=== PATIENT | male | born 1985 | race Caucasian/White ===

== ENCOUNTER 2023-07-10 15:23 | Emergency (ER) | payer OTHER, SELFPAY ==
[2023-07-10 15:26] VITALS: BP 158/105
--- NOTE | 2023-07-10 15:59 | ED.GENMED ---
History of Present Illness
General
Chief Complaint: Musculo-Skeletal Complaint
Time Seen by Provider: 07/10/23 15:41
Travel History
Have you had any contact with someone who has COVID-19?: No
Do you have any symptoms of coronavirus? Fever > 100 degrees, chills, cough, shortness of breath, sore throat, loss of taste or smell, muscle aches, or headache?: No
History of Present Illness
History of Present Illness:
HPI: Patient presents due to right great toe pain. 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 He feels improved today but came in here at the recommendation of his colleagues. He denies any other issues or concerns.
EXAM:
GENERAL: Well appearing in no distress
PSYCHIATRIC: Appropriate mental status, normal insight and judgement
EXTREMITIES: There is tenderness at the right great toe diffusely, there is evidence for contusion just proximal to the nail with no evidence of subungual hematoma, there is only slightly decreased active range of motion at the affected toe
SKIN: As above
TIME OF INITIAL ENCOUNTER: 3:50 PM
NUMBER AND COMPLEXITY OF PROBLEMS ADDRESSED AT THE ENCOUNTER
� Chronic conditions affecting care: Patient is otherwise healthy, no history of diabetes and no history of high blood pressure
� Acute Exacerbation and/or Progression of Chronic Illness: This is an acute problem
� Differential Diagnosis includes: Toe fracture, Toe contusion, subungual hematoma
AMOUNT AND/OR COMPLEXITY OF DATA TO BE REVIEWED AND ANALYZED
� I performed an independent evaluation of and my interpretation is:
EKG:
CT:
X-rays: I personally reviewed x-rays and favor more of a contusion however radiology does note a linear loose to the lateral aspect of the base of the distal phalanx
Laboratory Studies:
Other:
� Review of other/old records: No old records available for review
� Clinical information was obtained by an independent historian: None needed
� Prescriptions/Medications Considered but not given:
� Further testing considered but not performed:
RISK OF COMPLICATIONS AND/OR MORBIDITY OR MORTALITY OF PATIENT MANAGEMENT
� Social determinants of health affecting care: Works at [employer] as a surgeon, lives at home
� Discussion with other providers:
� Escalation of care including admission/observation vs risk of discharge considered: I informed patient of the elevated blood pressure and need for PMD follow-up. He currently appears very comfortable. He declines a boot. I
have given the contact information for orthopedics if needed.
Phy Exam
Physical Exam
Physical Exam:
See HPI
Course
Orders/Labs/Results
Orders:
Orders
07/10/23 15:29
Toes 2 Views, Right [CR Toe(s) Min 2 Vw Right] Urgent
Comment:
Reason For Exam: pain, injury
Vital Signs
Initial and Last Documented VS:
Initial Vital Signs
Temp Pulse Resp BP Pulse Ox
98.2 F 60 18 158/105 99
07/10/23 15:26 07/10/23 15:26 07/10/23 15:26 07/10/23 15:26 07/10/23 15:26
Last Documented Vital Signs
Temp Pulse Resp BP Pulse Ox
98.2 F 60 18 158/105 99
07/10/23 15:26 07/10/23 15:26 07/10/23 15:26 07/10/23 15:26 07/10/23 15:26
*Critical Care Note
Total Time (30-74mins, 75-104mins- exclusive of procedures): Not Applicable
ED Attending Note
-
Portions of this chart may have been created with voice recognition software.� Occasional wrong word or��sound alike� substitutions may have occurred due to the inherent limitations of voice recognition software.
Discharge Plan
Departure
Patient Disposition: Home (Routine Discharge)
Date of Disposition: 07/10/23
Time of Disposition: 15:49
Patient with high blood pressure during this ER visit?: Yes
Discharge Problem:
Fracture of toe of right foot
Instructions: Toe Injury (DC), BLOOD PRESSURE
Referrals:
Mg Qiu MD [Active] - Follow up in 2-3 days
Activity Restrictions/Additional Instructions:
Your blood pressure was very high initially at 158/105, I recommend PMD follow-up. I have given you the contact information for a local orthopedist if needed.
Interventions
Interventions:
*Risk Screen - Suicide Last Done: 07/10/23 15:26
*General Assessment Last Done: 07/10/23 15:26
*Neglect/Abuse Screening Last Done: 07/10/23 15:26
Discharge Date and Time
Print Language: CHILEAN
== END 2023-07-10 16:21 | disposition home or self-care (01) ==
LOC: EMR 15:23
PROVIDERS: EMERGENCY PHYSICIAN Emergency Medicine
DX: S92.421A Displaced fracture of distal phalanx of right great toe, initial encounter for closed fracture (principal); W20.8XXA Other cause of strike by thrown, projected or falling object, initial encounter; Y99.0 Civilian activity done for income or pay; R03.0 Elevated blood-pressure reading, without diagnosis of hypertension
CPT/HCPCS: 99283; 73660

== ENCOUNTER → 2023-09-03 15:00 | Outpatient (REF) | payer BC, SELFPAY ==
[2023-09-03 19:33] LABS: % Basophils 0.7 % (0-2); % Eosinophils 4.7 % (0-6); % Immature Granulocytes 0.2 % (0-0.5); % Lymphocytes 37.7 % (20.5-51.1); % Monocytes 7.8 % (1.7-9.3); % Neutrophils 48.9 % (42.2-75.2); Absolute Eosinophils 0.2 10^3/uL (0-0.7); Absolute Lymphocytes 1.7 10^3/uL (1.2-3.4); Absolute Monocytes 0.4 10^3/uL (0.1-0.6); Absolute Neutrophils 2.2 10^3/uL (1.4-6.5); Hematocrit 44.7 % (39.0-52.0); Hemoglobin 14.8 g/dL (13.0-18.0); Mean Corp Hgb Conc. 33.1 g/dL (33.0-37.0); Mean Corpuscular Hgb 31.2 pg (27.0-31.0); Mean Corpuscular Volume 94.3 fL (80.0-94.0); Nucleated Red Blood Cells % 0 % (-); Platelet Count 187 10^3/uL (130-400); Red Blood Cell Count 4.74 10^6/uL (4.70-6.10); Red Cell Dist. Width 13.4 % (11.5-14.5); White Blood Cell Count 4.5 10^3/uL (4.8-10.8)
[2023-09-03 19:40] LABS: ALT (SGPT) 27 U/L (0-50); AST (SGOT) 29 U/L (17-59); Alkaline Phosphatase 58 U/L (38-126); Blood Urea Nitrogen 21 mg/dl (9-20); Calcium 9.9 mg/dl (8.4-10.2); Carbon Dioxide 28 mmol/L (22-30); Chloride 103 mmol/L (98-107); Glucose 90 mg/dl (70-99); HDL Cholesterol 97 mg/dl; LDL Cholesterol, Calculated 104 mg/dl; Potassium 4.3 mmol/L (3.5-5.1); Sodium 138 mmol/L (135-145); Total Bilirubin 0.8 mg/dl (0.2-1.3); Total Cholesterol 222 mg/dl (50-199); Total Protein 7.6 g/dl (6.3-8.2); Triglyceride 107 mg/dl (10-149); Very Low Density Lipoprotein 21 mg/dl (0-30); eGFR > 60.00
[2023-09-03 20:09] LABS: PSA, Total - Screen 0.86 ng/ml (0.0-4.0); TSH 0.99 uIU/ml (0.47-4.68)
[2023-09-03 20:11] LABS: Urine Albumin Negative (Neg - Trace); Urine Bilirubin Negative (Negative); Urine Character Very Cloudy (Clear); Urine Color Yellow; Urine Glucose Negative (Negative); Urine Ketone Negative (Negative); Urine Leukocyte Negative (Negative); Urine Nitrite Negative (Negative); Urine Occult Blood Negative (Negative); Urine Urobilinogen Negative (Neg - 1+)
== END ==
LOC: CLAB 15:00
PROVIDERS: ATTENDING PHYSICIAN Family Medicine
DX: Z00.00 Encounter for general adult medical examination without abnormal findings (principal); Z80.42 Family history of malignant neoplasm of prostate
CPT/HCPCS: 36415; 80053; 80061; 81003; 84443; 85025; G0103

== ENCOUNTER → 2025-03-21 15:50 | Outpatient (REF) | payer BC, SELFPAY ==
[2025-03-21 16:41] LABS: Urine Character Clear (Clear)
[2025-03-21 16:51] LABS: ALT (SGPT) 24 U/L (0-50); AST (SGOT) 28 U/L (17-59); Albumin 4.9 g/dl (3.5-5.0); Alkaline Phosphatase 56 U/L (38-126); Blood Urea Nitrogen 16 mg/dl (9-20); Calcium 9.6 mg/dl (8.4-10.2); Carbon Dioxide 30 mmol/L (22-30); Chloride 101 mmol/L (98-107); Glucose 102 mg/dl (70-99); HDL Cholesterol 94 mg/dl; LDL Cholesterol, Calculated 106 mg/dl; Potassium 4.7 mmol/L (3.5-5.1); Sodium 134 mmol/L (135-145); Total Protein 7.6 g/dl (6.3-8.2); Very Low Density Lipoprotein 14 mg/dl (0-30); eGFR > 60.00
[2025-03-21 17:02] LABS: Hematocrit 42.8 % (39.0-52.0); Hemoglobin 14.3 g/dL (13.0-18.0); Mean Corp Hgb Conc. 33.4 g/dL (33.0-37.0); Mean Corpuscular Volume 92.6 fL (80.0-94.0); Nucleated Red Blood Cells % 0 % (-); Platelet Count 186 10^3/uL (130-400); Red Cell Dist. Width 12.9 % (11.5-14.5)
[2025-03-21 17:21] LABS: PSA, Total - Diagnostic 0.48 ng/ml (0.0-4.0); TSH 1.08 uIU/ml (0.47-4.68)
== END ==
LOC: CLAB 15:50
PROVIDERS: ATTENDING PHYSICIAN Family Medicine
DX: Z00.00 Encounter for general adult medical examination without abnormal findings (principal); Z80.42 Family history of malignant neoplasm of prostate
CPT/HCPCS: 36415; 80053; 80061; 81003; 84153; 84443; 85025